=== PATIENT | male | born 1985 | race Caucasian/White ===

== ENCOUNTER 2022-02-01 03:49 | Emergency (ER) | payer OTHER ==
[2022-02-01] MEDS ORDERED: KETOROLAC 60 MG/2 ML VIAL IM STA (04:22)
--- NOTE | 2022-02-01 04:24 | ED Physician Documentation ---
PD HPI UPPER EXT INJURY - Stated complaint Stated Complaint: left shoulder - Chief complaint Chief Complaint: Ext Problem - History obtained from History obtained from: Patient - History of Present Illness Location: Left, Shoulder Type of injury: Other (pulled hard to open plastic packaging) Where injury occurred: Home Timing - onset: Enter time (1899), Last night Timing - duration: Hours Timing - details: Abrupt onset, Still present Improved by: Rest, Immobilization Worsened by: Moving, Palpating Associated symptoms: No: Weakness, Numbness, Tingling, Swelling, Discolored Contributing factors: Prior ortho surgery Similar symptoms before: Diagnosis (rotator cuff and labrum injury) Recently seen: Not recently seen - Additonal information Additional information: 36-year-old Yobani Oviedo has a prior history of injury to his left shoulder with a rotator cuff injury and labrum tear. He has been having increasing pain over the past year and today he was opening a hard plastic packaging. He pulled on it pretty hard and injured his left shoulder. He has been unable to sleep since 7:00 last night and he is coming to the emergency department for relief. He is unable to move his shoulder in any significant range of motion secondary to pain. Review of Systems Constitutional: denies: Fever Ears: denies: Ear pain Nose: denies: Rhinorrhea / runny nose, Congestion Throat: denies: Sore throat Cardiac: denies: Chest pain / pressure Respiratory: denies: Cough GI: denies: Vomiting, Constipation, Diarrhea : denies: Dysuria, Frequency Musculoskeletal: reports: Neck pain, Joint pain. denies: Back pain, Extremity swelling, Joint swelling Neurologic: denies: Generalized weakness, Focal weakness, Numbness PD PAST MEDICAL HISTORY - Present Medications Home Medications: Ambulatory Orders Medication Instructions Recorded Confirmed HYDROcod/ACETAM 5/325 [[place] 5/325] 1 - 2 tablet PO Q6H PRN #14 tablet 02/01/22 - Allergies Allergies/Adverse Reactions: Allergies Allergy/AdvReac Type Severity Reaction Status Date / Time No Known Drug Allergies Allergy Verified 02/01/22 04:16 PD ED PE NORMAL - Vitals Vital signs reviewed: Yes (hypertensive ) - General General: Alert and oriented X 3, No acute distress, Well developed/nourished - HEENT HEENT: Atraumatic, PERRL, EOMI - Neck Neck: Supple, no meningeal sign, No bony TTP - Respiratory Respiratory: No respiratory distress - Derm Derm: Normal color, Warm and dry, No rash - Extremities Extremities: No deformity, No edema, Other (point tenderness anterior and posterior deltoid on the left. Decreased ROM secondary to pain. Able to abduct passivley but not actively. ) - Neuro Neuro: Alert and oriented X 3, auto driver 2-12 intact, No motor deficit, No sensory deficit, Normal speech Eye Opening: Spontaneous Motor: Obeys Commands Verbal: Oriented GCS Score: 15 - Psych Psych: Normal mood, Normal affect Results - Vitals Vitals: Vital Signs - 24 hr 02/01/22 02/01/22 04:05 05:15 Temperature 36.1 C L Heart Rate 72 60 Respiratory 16 16 Rate Blood Pressure 169/105 H 162/102 H O2 Saturation 95 97 Oxygen O2 Source Room air - Rads (name of study) shoulder L Radiology: Prelim report reviewed (Impression: No acute findings.), EMP read indepedently, See rad report PD MEDICAL DECISION MAKING - ED course Complexity details: reviewed results, re-evaluated patient, considered differential, d/w patient ED course: 36-year-old male with a strain to the left shoulder has a lot of difficulty moving the shoulder around and he has had prior rotator cuff and labrum injury. He has had surgery for this. Today he is not able to hold the arm in abduction and this can be moved into abduction passively. Patient is placed into a sling and instructed to follow-up with orthopedics. He is given an injection of Toradol in the emergency department and we have provided a short course of pain medication. Departure - Departure Disposition: 01 Home, Self Care Clinical Impression: Strain of shoulder, left Qualifiers: Encounter type: initial encounter Qualified Code(s): S46.912A - Strain of unspecified muscle, fascia and tendon at shoulder and upper arm level, left arm, initial encounter Condition: Stable Instructions: ED Immobilizer Shoulder, ED Sprain Shoulder Follow-Up: NATAC[facility] Sommer [Provider Group] Brian Ralph MD [Provider Admit Priv/Credential] - Prescriptions: HYDROcod/ACETAM 5/325 [[place] 5/325] 1 - 2 tablet PO Q6H PRN #14 tablet PRN Reason: Pain Comments: Yobani, it looks like you strained your shoulder and it is difficult to tell exactly what is torn or disrupted. A follow-up with orthopedics is indicated and in the meantime use the sling and swath for support and make certain to remove your arm from the sling and swath several times per day to do range of motion. I have given you a number for an orthopedic doctor for follow-up. You will likely need MRI. I have provided a limited number of narcotic pain pills which have been E scribed to the [facility] in [place]. Discharge Date/Time: 02/01/22 05:19
[2022-02-01 05:25] VITALS: BP 162/102
--- NOTE | 2022-02-01 08:02 | XRAY Report ---
PROCEDURE: Shoulder 3 View LT INDICATIONS: injured, pain, decreased ROM, prior surg TECHNIQUE: 3 views of the shoulder were acquired. COMPARISON: None. FINDINGS: Bones: No fractures or dislocations. No suspicious bony lesions. Slight inferior displacement of hu meral head at the glenohumeral joint, probably related to joint effusion. Visualized ribs appear inta ct. Soft tissues: No suspicious soft tissue calcifications. IMPRESSION: 1. No acute osseous abnormalities. 2. Suspect glenohumeral joint effusion. 3. No significant discrepancy with the preliminary interpretation. Reviewed by: Mariposa Bailey MD on 02/01/2022 8:00 AM PST Approved by: Mariposa Bailey MD on 02/01/2022 8:00 AM PST Station ID: [id number]
== END 2022-02-01 05:19 | disposition home or self-care (01) ==
LOC: ED 03:49
DX: S46.912A Strain of unspecified muscle, fascia and tendon at shoulder and upper arm level, left arm, initial encounter (principal); X58.XXXA Exposure to other specified factors, initial encounter
CPT/HCPCS: 96372; 99283; 99284

== ENCOUNTER 2022-08-05 08:43 | Emergency (ER) | payer OTHER ==
[2022-08-05 09:00] VITALS: BP 164/103
--- NOTE | 2022-08-05 09:21 | ED Physician Documentation ---
History of Present Illness - Stated complaint Stated Complaint: RT KNEE PX - Chief complaint Chief Complaint: Ext Problem - History obtained from History obtained from: Patient - Additonal information Additional information: Patient is a 36-year-old with a history of gout presenting for evaluation of right knee pain at that feels similar to prior attacks of gout. Patient reports pain started on Friday. He reports eating lumpy on Friday and that fried food and pork have been triggers for him in the past. He has had improvement in the past with colchicine does not currently have a prescription. 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 Review of Systems Constitutional: denies: Fever Cardiac: denies: Chest pain / pressure Respiratory: denies: Dyspnea GI: denies: Abdominal Pain Musculoskeletal: reports: Extremity pain Neurologic: denies: Headache PD PAST MEDICAL HISTORY - Past Medical History Past Medical History: Yes Musculoskeletal: Gout - Past Surgical History Past Surgical History: Yes Ortho: Shoulder arthroplasty - Present Medications Home Medications: Ambulatory Orders Medication Instructions Recorded Confirmed Colchicine 0.6 mg PO BID PRN #14 tablet 08/05/22 - Allergies Allergies/Adverse Reactions: Allergies Allergy/AdvReac Type Severity Reaction Status Date / Time No Known Drug Allergies Allergy Verified 02/01/22 04:16 - Social History Does the pt smoke?: No Smoking Status: Never smoker Does the pt drink ETOH?: Yes Does the pt have substance abuse?: No - Immunizations Immunizations are current?: Yes - POLST Patient has POLST: No PD ED PE NORMAL - General General: Alert and oriented X 3, No acute distress, Well developed/nourished - HEENT HEENT: Atraumatic - Neck Neck: Supple, no meningeal sign - Cardiac Cardiac: Strong equal pulses - Respiratory Respiratory: No respiratory distress - Derm Derm: Warm and dry, No rash - Extremities Extremities: No deformity, No edema, Other (Tenderness to lateral right knee, no signs of joint swelling, overlying erythema, Mild pain on range of motion) - Neuro Neuro: Alert and oriented X 3, No motor deficit, No sensory deficit, Normal speech Results - Vitals Vitals: Vital Signs - 24 hr 08/05/22 08:50 Temperature 37 C Heart Rate 98 Respiratory 16 Rate Blood Pressure 164/103 H O2 Saturation 98 Oxygen O2 Source Room air PD Medical Decision Making - ED course ED course: Patient presenting for evaluation of atraumatic right knee pain. He has a history of gout with prior episodes in the knee. No trauma or signs of septic joint. He is ambulatory. Stable vital signs. No visible deformity noted on exam.Given history of gout in the joint suspect that this is likely a flareup especially given with known trigger for the patient.We will treat with colchicine and as patient states that this has helped him in the past. Discussed need for [facility] as well as strict return precautions for any worsening symptoms. Departure - Departure Disposition: 01 Home, Self Care Clinical Impression: Gout attack Condition: Stable Instructions: ED Arthritis Gout Prescriptions: Colchicine 0.6 mg PO BID PRN #14 tablet PRN Reason: Pain 5-7 Comments: I am sending a prescription for colchicine to the [facility] pharmacy in [place]. Please take as directed. I would recommend close follow-up with your primary care provider. Please avoid any Known triggers for your gout flares. If you develop any worsening symptoms such as fever, increased pain or any new concerns please return to the emergency department. Forms: Activity restrictions Discharge Date/Time: 08/05/22 09:34
[2022-08-05] MEDS: COLCHICINE 0.6 MG TABLET PO STA (09:28)
== END 2022-08-05 09:34 | disposition home or self-care (01) ==
LOC: ED 08:43
DX: M10.9 Gout, unspecified (principal)
CPT/HCPCS: 99282; 99283; A9270

== ENCOUNTER 2022-08-20 18:55 | Emergency (ER) | payer OTHER ==
[2022-08-20 19:04] VITALS: BP 145/88
--- NOTE | 2022-08-20 20:22 | XRAY Report ---
PROCEDURE: Knee 4 View RT INDICATIONS: R knee pain TECHNIQUE: 4 views of the right knee were acquired. COMPARISON: None. FINDINGS: Bones: No fractures or dislocations. There is mild osteophytosis in the patellofemoral compartment l aterally. No suspicious bony lesions. Soft tissues: There is a small knee joint effusion. No suspicious soft tissue calcifications or mass es. IMPRESSION: 1. No acute bony abnormality. 2. Small joint effusion. Reviewed by: Woody Diaz MD on 08/20/2022 8:21 PM PDT Approved by: Woody Diaz MD on 08/20/2022 8:21 PM PDT Station ID: [id number]
[2022-08-20] MEDS ORDERED: KETOROLAC 60 MG/2 ML VIAL IM STA (20:49)
[2022-08-20] MEDS ORDERED: predniSONE 20 MG TABLET PO STA (20:49)
--- NOTE | 2022-08-20 20:54 | ED Physician Documentation ---
History of Present Illness - Stated complaint Stated Complaint: RT KNEE PAIN - Chief complaint Chief Complaint: Ext Problem - History obtained from History obtained from: Patient - History of Present Illness Timing: How many weeks ago (2) Pain level max: 8 Pain level now: 8 - Additonal information Additional information: Patient is a 36-year-old male who presents to the emergency department with a right knee pain. He states that this feels similar to his prior episodes of gout. He was placed on colchicine 2 weeks ago but [place] have had no appointments. He states he is having continued pain and swelling to the right knee. Denies any trauma. Has not taken anything for the pain. No fevers. No chills. Worse with walking and movement, better with rest. Review of Systems Constitutional: denies: Fever, Chills GI: denies: Vomiting, Diarrhea Skin: denies: Rash Musculoskeletal: denies: Neck pain, Back pain Neurologic: denies: Headache PD PAST MEDICAL HISTORY - Past Medical History Past Medical History: Yes Musculoskeletal: Gout - Past Surgical History Past Surgical History: Yes Ortho: Shoulder arthroplasty - Present Medications Home Medications: Ambulatory Orders Medication Instructions Recorded Confirmed Colchicine 0.6 mg PO BID PRN #14 tablet 08/05/22 Indomethacin [Indocin] 25 - 50 mg PO Q8H PRN #30 cap 08/20/22 predniSONE [Deltasone] 10 mg PO [id number] #42 tab 08/20/22 - Allergies Allergies/Adverse Reactions: Allergies Allergy/AdvReac Type Severity Reaction Status Date / Time No Known Drug Allergies Allergy Verified 08/20/22 19:00 - Social History Does the pt smoke?: No Smoking Status: Never smoker Does the pt drink ETOH?: Yes Does the pt have substance abuse?: No - Immunizations Immunizations are current?: Yes - POLST Patient has POLST: No PD ED PE NORMAL - Vitals Vital signs reviewed: Yes - General General: Alert and oriented X 3, No acute distress - HEENT HEENT: Moist mucous membranes - Neck Neck: Supple, no meningeal sign - Cardiac Cardiac: RRR - Respiratory Respiratory: No respiratory distress, Clear bilaterally - Derm Derm: Warm and dry, No rash - Extremities Extremities: Other (Right knee - Mild warmth to the knee. No skin changes. Small joint effusion Neurovascularly intact. Limited range of motion secondary to pain. ACL, MCL, LCL and PCL are intact. Unable to tolerate meniscus laura ting.) - Neuro Neuro: Alert and oriented X 3 - Psych Psych: Normal mood, Normal affect Results - Vitals Vitals: Vital Signs - 24 hr 08/20/22 19:00 Temperature 36.5 C Heart Rate 97 Respiratory 18 Rate Blood Pressure 145/88 H O2 Saturation 97 Oxygen O2 Source Room air - Rads (name of study) Right knee x-ray Relevant Findings:: Final report received, See rad report (Small joint effusion) PD Medical Decision Making - ED course Complexity details: reviewed results, re-evaluated patient, considered differential, d/w patient ED course: 36-year-old male with ongoing right knee pain. We will treat as potential gout, given Toradol and will place on prednisone. We will place on indomethacin as well. Recommend that he follow-up with orthopedics as he may need further investigation for his small effusion, potential meniscus injury? Does not appear consistent with septic joint at this time. We will place the patient on crutches to decrease the weightbearing and to see if this helps the effusion as well. He is unable to tolerate meniscus testing here. No acute findings other than the small effusion on x-ray. Patient counseled regarding signs and symptoms for which I believe and urgent re-evaluation would be necessary. Patient with good understanding of and agreement to plan and is comfortable going home at this time This document was made in part using voice recognition software. While efforts are made to proofread this document, sound alike and grammatical errors may occur. Departure - Departure Disposition: 01 Home, Self Care Clinical Impression: Joint effusion Qualifiers: Effusion of joint location: knee Laterality: right Qualified Code(s): M25.461 - Effusion, right knee Condition: Good Instructions: ED Effusion Knee Follow-Up: [facility] [Provider Group] - Within 1 week Prescriptions: predniSONE [Deltasone] 10 mg PO [id number] #42 tab Indomethacin [Indocin] 25 - 50 mg PO Q8H PRN #30 cap PRN Reason: knee pain Comments: Please follow-up with orthopedics for further care. We will place you on a steroid taper, if this is gout, this should resolve quickly. It is also possible that the effusion could be secondary to a another source such as a meniscus injury. Your x-ray does not show any other acute abnormalities. Please follow-up with your doctor and orthopedics. Please return if you worsen Your prescriptions were sent to [facility] in [place]. Forms: Activity restrictions Discharge Date/Time: 08/20/22 21:24
== END 2022-08-20 21:24 | disposition home or self-care (01) ==
LOC: ED 18:55
DX: M25.461 Effusion, right knee (principal)
CPT/HCPCS: 73564; 96372; 99283; J7512

== ENCOUNTER 2022-09-25 12:45 | Outpatient (CLI) | payer OTHER ==
--- NOTE | 2022-09-26 10:46 | MRI Report ---
PROCEDURE: KNEE WO - RT INDICATIONS: RIGHT KNEE PAIN TECHNIQUE: Noncontrast sagittal PD fast spin echo and T2 fast spin echo with fat saturation, sagittal 3-D gradie nt sequence with fat saturation; coronal T1 spin echo and PD fast spin echo with fat saturation, and axial PD fast spin echo with fat saturation through the knee. COMPARISON: X-ray right knee, 08/20/2025. FINDINGS: Image quality: Excellent. Menisci: There is complex tear of the anterior root of the medial meniscus. There is horizontal tear of the anterior root of the lateral meniscus. Cruciate ligaments: The anterior and posterior cruciate ligaments appear intact. Medial structures: The medial collateral ligament appears intact. The semimembranosus tendon insert ions and meniscocapsular junction appear intact. Visualized portions of the pes anserinus tendons ap pear normal. No abnormal bursal fluid. Lateral structures: The lateral collateral ligament and the biceps femoris tendon appear intact. The re is partial tear of the popliteus tendon and associated muscle strain at the musculotendinous junct ion. There is a 0.8 x 1.5 x 2.2 cm oval-shaped structure in the popliteal musculotendinous junction p robably a small hematoma. Iliotibial band appears normal. Anterior structures: The quadriceps and patellar tendons appear intact. There is moderate patellar tendinitis. Patellar alignment is normal. No femoral trochlear dysplasia or ventral trochlear promin ence. No edema in the infrapatellar fat pad. Bones and cartilage: No bone marrow contusions or fractures. Mild tricompartmental cartilage fibrill ation with preserved cartilage thickness. Joint space: There is bzzxk-xx-thikagwr knee joint effusion. There is a moderate-sized complex popli teal cyst. Normal appearing synovial plicae are incidentally noted. IMPRESSION: 1. Tear of the anterior root of the medial meniscus. 2. Tear of the anterior root of the lateral meniscus. 3. Partial tear of the popliteus tendon with associated strain at the musculotendinous junction. Ther e is a 0.8 x 1.5 x 2.2 cm oval-shaped structure at the popliteus musculotendinous junction, probably a small hematoma. 4. Patellar tendinitis. 5. A moderate sized complex popliteal cyst. 6. A small-to moderate knee joint effusion. Reviewed by: Mariposa Bailey MD on 09/26/2022 10:45 AM PDT Approved by: Mariposa Bailey MD on 09/26/2022 10:45 AM PDT Station ID: [id number]
== END 2022-09-25 12:46 | disposition home or self-care (01) ==
LOC: DI 12:45
PROVIDERS: ATTEND Nurse Practitioner Family
DX: S83.241A Other tear of medial meniscus, current injury, right knee, initial encounter (principal); S83.281A Other tear of lateral meniscus, current injury, right knee, initial encounter; S86.821A Laceration of other muscle(s) and tendon(s) at lower leg level, right leg, initial encounter; M71.21 Synovial cyst of popliteal space [Baker], right knee; M25.461 Effusion, right knee

== ENCOUNTER 2022-10-04 13:58 | Outpatient (CLI) | payer OTHER ==
[2022-10-04] MEDS ORDERED: LIDOCAINE-MPF 1% 5 ML VIAL ONE (14:13)
[2022-10-04] MEDS ORDERED: TRIAMCINOLONE 40 MG/ML VIAL ONE (14:13)
[2022-10-04] MEDS ORDERED: BUPIVACAINE 0.5% PF 10 ML VIAL ONE (14:13)
--- NOTE | 2022-10-04 15:51 | Ultrasound Report ---
PROCEDURE: Injection Single Tendon INDICATIONS: PAIN IN LEFT SHOULDER TECHNIQUE: The indications, alternatives, benefits, risks, and complications of the procedure were explained to the patient. Written informed consent was obtained and placed in the chart. The patient was placed in an appropriate position on the fluoroscopy table, and a site was chosen for percutaneous access un shreya ultrasound guidance. Local anesthetic was administered using a 1% lidocaine solution. A hypoder susan or spinal needle was then used to access the symptomatic joint. Intra-articular location of the needle tip was confirmed by real time ultrasound imaging, followed by steroid administration. The ne edle was then withdrawn, and a bandage applied to the puncture site. FINDINGS: Joint injected: Left biceps tendon sheath. Medications injected: 5 mL of 40 mg/mL Kenalog and 0.5% Ropivacaine mixture. Complications: None. IMPRESSION: Successful ultrasound guided administration of steroid and anaesthetic solution into the left biceps tendon sheath. Reviewed by: Damián Antonio on 10/04/2022 3:49 PM PDT Approved by: Damián Antonio on 10/04/2022 3:49 PM PDT Station ID: [id number]
[2022-10-04] MEDS ORDERED: LIDOCAINE-MPF 1% 5 ML VIAL TD ONE (17:52)
[2022-10-04] MEDS ORDERED: BUPIVACAINE 0.5% PF 10 ML VIAL IM ONE (17:53)
[2022-10-04] MEDS ORDERED: TRIAMCINOLONE 40 MG/ML VIAL IM ONE (17:54)
== END 2022-10-04 13:59 | disposition home or self-care (01) ==
LOC: DI 13:58
PROVIDERS: ATTEND Orthopaedic Surgery
DX: M25.512 Pain in left shoulder (principal); G89.29 Other chronic pain
CPT/HCPCS: 20550

== ENCOUNTER 2023-02-17 18:32 | Emergency (ER) | payer OTHER ==
[2023-02-17] MEDS ORDERED: HYDROcod/ACETAM 5/325 MG TABLET PO STA (18:58)
--- NOTE | 2023-02-17 18:59 | ED Physician Documentation ---
PD HPI LOWER EXT INJURY - Stated complaint Stated Complaint: RT FOOT PX - Chief complaint Chief Complaint: Ext Problem - History obtained from History obtained from: Patient - Additional information Additional information: 37-year-old gentleman who is active duty in the [employer] and has a history of Planter fasciitis and gout presents with pain on the bottom of the right foot for the last week. There was no trauma. It makes it hard to walk. He is already taking anti-inflammatories. PD PAST MEDICAL HISTORY - Past Medical History Past Medical History: Yes Musculoskeletal: Gout - Past Surgical History Past Surgical History: Yes Ortho: Shoulder arthroplasty - Present Medications Home Medications: Ambulatory Orders Medication Instructions Recorded Confirmed HYDROcod/ACETAM 5/325 [[place] 5/325] 1 - 2 tab PO Q6H PRN #10 tablet 02/17/23 Meloxicam 15 mg PO DAILY PRN 02/17/23 02/17/23 - Allergies Allergies/Adverse Reactions: Allergies Allergy/AdvReac Type Severity Reaction Status Date / Time No Known Drug Allergies Allergy Verified 02/17/23 18:40 - Social History Does the pt smoke?: No Smoking Status: Never smoker Does the pt drink ETOH?: Yes Does the pt have substance abuse?: No - Immunizations Immunizations are current?: Yes - POLST Patient has POLST: No PD ED PE NORMAL - Vitals Vital signs reviewed: Yes - General General: Alert and oriented X 3, No acute distress - Back Back: No CVA TTP, No spinal TTP - Derm Derm: Normal color, Warm and dry - Extremities Extremities: Other (Tender to the plantar fascia but not the heel or the Achilles. No redness, warmth, swelling. No focal tenderness over the first MTP.) - Neuro Neuro: Alert and oriented X 3, Normal speech Results - Vitals Vitals: Vital Signs - 24 hr 02/17/23 02/17/23 18:36 19:27 Temperature 36.1 C L Heart Rate 81 82 Respiratory 15 16 Rate Blood Pressure 159/104 H 151/104 H O2 Saturation 97 96 Oxygen O2 Source Room air PD Medical Decision Making - ED course ED course: 37-year-old gentleman with clinical Planter fasciitis. No evidence of gout or infection. Discussed appropriate stretches and recommended podiatry follow-up. Departure - Departure Disposition: 01 Home, Self Care Clinical Impression: Plantar fasciitis of right foot Condition: Good Record reviewed to determine appropriate education?: Yes Instructions: ED Plantar Fasciitis Prescriptions: HYDROcod/ACETAM 5/325 [[place] 5/325] 1 - 2 tab PO Q6H PRN #10 tablet PRN Reason: Pain Comments: As discussed, your examination is consistent Planter fasciitis. You can continue the anti-inflammatory and I am adding a little stronger pain killer for when it is very bad. [place] consider podiatry referral. I sent your electronic prescription to [facility] in [place]. I am prescribing a short course of narcotic pain medication for you. These are potentially dangerous and addictive medications that should be used carefully. These medications may constipate you. Take an bjxz-vof-zdsitbc stool softener (docusate) twice daily with plenty of water while taking these medications. If you go 24 hours without a bowel movement, take azqp-hdk-smclqxr miralax, per package instructions. Do not drink or drive while taking these medications. If you received narcotic or sedating medications while in the emergency department, do not drive for 24 hours. Store this medication in a safe, secure place and out of reach of children. It is a violation of federal law to give or sell this medication to another person or to use in a manner other than prescribed. The ED will not refill narcotic prescriptions, including prescriptions lost or stolen. To dispose of unwanted medications: 1. [facility] provides a [facility] box for medication in pill form only (no liquids) 8:00 am to 4:30 p.m. Friday-Friday in the lobby of the [facility], [address] [place] [address]. Empty pills into ziplock bag before disposal. Call [phone] for information. 2.[employer] is a free service available to all [facility] residents. Go to [email or web address]/ Note that many narcotic pain relievers also contain Tylenol/acetaminophen. Please ensure that your total dose of acetaminophen from all sources does not exceed 3 g (3000 mg) per day. Forms: PCP List Discharge Date/Time: 02/17/23 19:28
[2023-02-17 19:33] VITALS: BP 151/104; O2SAT 96
== END 2023-02-17 19:28 | disposition home or self-care (01) ==
LOC: ED 18:32
DX: M72.2 Plantar fascial fibromatosis (principal)
CPT/HCPCS: 99282; A9270

== ENCOUNTER 2023-04-26 06:33 | Emergency (ER) | payer OTHER ==
[2023-04-26 06:53] VITALS: O2SAT 97
[2023-04-26] MEDS: TRIAMCINOLONE 40 MG/ML VIAL MC STA (07:40)
[2023-04-26] MEDS: ACETAMINOPHEN 500 MG TABLET PO STA (07:40)
[2023-04-26] MEDS: KETOROLAC 30 MG/ML VIAL IM STA (07:40)
--- NOTE | 2023-04-26 07:55 | ED Physician Documentation ---
PD HPI UPPER EXT INJURY - Stated complaint Stated Complaint: R SHOULDER PX - Chief complaint Chief Complaint: Trauma Ext - History obtained from History obtained from: Patient - History of Present Illness Location: Right, Shoulder Type of injury: Other (he was doing some repetitive work with arms and shoulder during the day and started to have pain in evening that has gotten worse overnight. Pain wth movement and lying on it.). No: Fall, Twist Where injury occurred: Home Timing - onset: Yesterday Timing - duration: Days (1) Timing - details: Gradual onset, Still present (severe the past several hours and greatly worse with any movement. Pain at lateral shoulder primarily.) Worsened by: Moving, Palpating Associated symptoms: No: Weakness (not in elbow nor hand, but feels weak in shoulder due to pain of movement.), Numbness Contributing factors: Prior ortho surgery (has had labral repair and some arthritis smoothing by scope few years ago on that shoulder. Has pain occasionally but not near to this degree.) Review of Systems Constitutional: reports: Chills (he felt chills last night but thinks it from the pain. Has not had congestion, cough, runny nose, skin redness, swelling of shoulder nor skin sores otherwise.). denies: Fever Nose: denies: Rhinorrhea / runny nose, Congestion Throat: denies: Sore throat Respiratory: denies: Cough Skin: denies: Rash, Lesions, Abrasion (s), Laceration (s) PD PAST MEDICAL HISTORY - Past Medical History Musculoskeletal: Gout (but has not had it in the shoulders previously. ), Other (prior shoulder surgeries. ) - Past Surgical History Past Surgical History: Yes Ortho: Shoulder arthroplasty - Present Medications Home Medications: Ambulatory Orders Medication Instructions Recorded Confirmed HYDROcod/ACETAM 5/325 [Butte 5/325] 1 ea PO Q6H PRN #18 tablet 04/26/23 Meloxicam [Mobic] 7.5 mg PO BID 10 Days #20 tablet 04/26/23 methocarbamoL [Robaxin] 500 mg PO Q6H PRN #20 tablet 04/26/23 - Allergies Allergies/Adverse Reactions: Allergies Allergy/AdvReac Type Severity Reaction Status Date / Time No Known Drug Allergies Allergy Verified 04/26/23 08:06 - Social History Does the pt smoke?: No Smoking Status: Never smoker Does the pt drink ETOH?: Yes Does the pt have substance abuse?: No - Immunizations Immunizations are current?: Yes - POLST Patient has POLST: No PD ED PE NORMAL - Vitals Vital signs reviewed: Yes - General General: Alert and oriented X 3, Well developed/nourished, Other (appears in considerable pain and guarding ROM of the shoulder with it held to his side. ) - Neck Neck: Supple, no meningeal sign, No bony TTP, No adenopathy - Cardiac Cardiac: RRR (mild tachycardic with good heart sounds and no murmur nor rub. ) - Respiratory Respiratory: No respiratory distress, Clear bilaterally - Abdomen Abdomen: Soft, Non tender - Derm Derm: Normal color, Warm and dry, No rash - Extremities Extremities: Other (right shoulder very tender laterally anterior and posterior to the AC joint but not as much directly at it. Consider bursal process underneath. All motions of the shoulder in rotational directions cause pain. ) - Neuro Neuro: Alert and oriented X 3, No motor deficit, No sensory deficit Results - Vitals Vitals: Oxygen O2 Source Room air - Rads (name of study) right shoulder Relevant Findings:: Prelim report reviewed, EMP independent interpretation of test (no acute process) PD Medical Decision Making - ED course Complexity details: reviewed results (shoulder xray without bone lesions, dislocation nor stress fractures. He states some chills last night and has mild tachy but likely from pain. No other symptoms nor findings to suggest infections, particularly none appearing at the shoulder. Cautioned to watch for rash, redness, swelling. ), considered differential (onset of pain after some repetitive work with it at home. Has become severe, worse with ROM. Tender laterally. Most likely bursitis, given the character of it. I did injection at the bursal area from anterior aspect with Kenalog and lido. Also given sling and NSAIDs. He drove self so no opioids here), d/w patient Departure - Departure Disposition: 01 Home, Self Care Clinical Impression: Acute bursitis Shoulder pain, acute Qualifiers: Laterality: right Qualified Code(s): M25.511 - Pain in right shoulder Condition: Stable Record reviewed to determine appropriate education?: Yes Follow-Up: [facility] [Provider Group] Prescriptions: Meloxicam [Mobic] 7.5 mg PO BID 10 Days #20 tablet HYDROcod/ACETAM 5/325 [Butte 5/325] 1 ea PO Q6H PRN #18 tablet PRN Reason: Pain methocarbamoL [Robaxin] 500 mg PO Q6H PRN #20 tablet PRN Reason: Spasms Comments: The location and character of your pain sounds likely to be an inflammation of the cushion underneath the muscles at the shoulder (bursitis). It can be some of the muscles for the shoulder themselves. The common treatment would be decreased use and motion of the shoulder with the sling in combination with not wanting to get too stiff so passive range of motion of the shoulder every 2-3 hours through the day. I am sure you are familiar with this concept given your prior shoulder surgeries. I would suggest some anti-inflammatories regularly. I wrote a prescription for 1 months twice daily. They can be muscle spasms around the shoulder as well so muscle relaxant 2 or 3 times daily as well. Progress range of motion as tolerated but no heavy lifting, push pull, overhead reaching for least 4 to 5 days. Add Tylenol every 4-6 hours if needed for pain or hydrocodone/acetaminophen if needed for worse pain. I sent your prescriptions to [facility] in [place]. I am prescribing a short course of narcotic pain medication for you. These are potentially dangerous and addictive medications that should be used carefully. These medications may constipate you. Take an [id number]-yjoxiwk stool softener such as docusate twice daily with plenty of water while taking these medications. If you go 24 hours without a bowel movement, take [id number] MiraLAX, per package instructions. Do not drink or drive while taking these medications. If you received narcotic or sedating medications while in the emergency department do not drive for 24 hours. Store this medication in a safe, secure place and out of reach of children. It is a violation of federal law to give or sell this medication to another person or to use in a manner other than prescribed. The ED will not refill narcotic prescriptions, including prescriptions lost or stolen. You can dispose of unwanted medications at the [facility]'s office or at several pharmacies such as [facility]. Follow-up with your primary care or Ortho if not well improved over the next several days and resolved by 4 to 5 days. Forms: PCP List, Activity restrictions Discharge Date/Time: 04/26/23 08:30
--- NOTE | 2023-04-26 08:17 | XRAY Report ---
PROCEDURE: Shoulder 2+V RT INDICATIONS: onset pain yesterday, worsening TECHNIQUE: 3 views of the shoulder were acquired. COMPARISON: None. FINDINGS: Bones: Mild degenerative changes of the acromioclavicular joint. No displaced fracture or dislocatio n. Soft tissues: No suspicious calcifications. IMPRESSION: No acute radiographic abnormality. Mild acromioclavicular degenerative changes. If there is high conc javier for further derangement, consider MRI evaluation. Reviewed by: Boni Monsalve MD on 04/26/2023 8:15 AM PST Approved by: Boni Monsalve MD on 04/26/2023 8:15 AM PST Station ID: [id number]
[2023-04-26 08:36] VITALS: BP 145/97
== END 2023-04-26 08:30 | disposition home or self-care (01) ==
LOC: ED 06:33
DX: M71.9 Bursopathy, unspecified (principal); M25.511 Pain in right shoulder
CPT/HCPCS: 20610; 73030; 96372; 99283; 99284; A9270

== ENCOUNTER 2023-12-14 14:14 | Emergency (ER) | payer OTHER ==
--- NOTE | 2023-12-14 15:11 | ED Physician Documentation ---
PD HPI LOWER EXT INJURY - Stated complaint Stated Complaint: LT ANKLE PX,SWELLING - Chief complaint Chief Complaint: Ext Problem - History obtained from History obtained from: Patient - Additional information Additional information: He has a history of gout with attacks about once a year including in the ankle. Atraumatic left ankle pain and swelling starting 2 days ago with warmth. No fevers. There was no injury. PD PAST MEDICAL HISTORY - Past Medical History Past Medical History: Yes Musculoskeletal: Gout, Other - Past Surgical History Past Surgical History: Yes Ortho: Shoulder arthroplasty - Present Medications Home Medications: Ambulatory Orders Medication Instructions Recorded Confirmed Colchicine 0.6 mg PO BID #3 tablet 12/14/23 Indomethacin [Indocin] 25 mg PO BIDWM #10 cap 12/14/23 - Allergies Allergies/Adverse Reactions: Allergies Allergy/AdvReac Type Severity Reaction Status Date / Time No Known Drug Allergies Allergy Verified 12/14/23 14:34 - Social History Does the pt smoke?: No Smoking Status: Never smoker Does the pt drink ETOH?: Yes Does the pt have substance abuse?: No - Immunizations Immunizations are current?: Yes - POLST Patient has POLST: No PD ED PE NORMAL - Vitals Vital signs reviewed: Yes - General General: Alert and oriented X 3, No acute distress - Extremities Extremities: Other (The left ankle is warm and swollen, tender with limited range of motion. No redness or cellulitis though.) - Neuro Neuro: Alert and oriented X 3 Results - Vitals Vitals: Vital Signs - 24 hr 12/14/23 12/14/23 14:20 15:52 Temperature 36 C L 36.5 C Heart Rate 92 88 Respiratory 16 16 Rate Blood Pressure 139/97 H 130/88 H O2 Saturation 96 98 Oxygen O2 Source Room air - Rads (name of study) Left ankle x-ray is normal Relevant Findings:: Final report received, EMP independent interpretation of test PD Medical Decision Making - ED course ED course: He presents with atraumatic left ankle swelling and warmth but no redness. He has had gout that has presented similarly in the past and that is likely it. He does not appear systemically ill and he is not febrile. Departure - Departure Disposition: 01 Home, Self Care Clinical Impression: Gout attack Qualifiers: Gout site: ankle Gout etiology: idiopathic Laterality: left Qualified Code(s): M10.072 - Idiopathic gout, left ankle and foot Condition: Good Record reviewed to determine appropriate education?: Yes Instructions: ED Arthritis Gout, ED Diet Gout Prescriptions: Colchicine 0.6 mg PO BID #3 tablet Indomethacin [Indocin] 25 mg PO BIDWM #10 cap Comments: The x-ray looks okay, so given your history of gout this is likely a gout flare. I sent medications to the [facility] in [place], return if you develop a fever. Follow-up with your flight physician. Forms: PCP List, Activity restrictions Discharge Date/Time: 12/14/23 15:52
[2023-12-14] MEDS: COLCHICINE 0.6 MG TABLET PO STA (15:34)
[2023-12-14] MEDS: INDOMETHACIN 25 MG CAPSULE PO STA ×2 (15:35)
--- NOTE | 2023-12-14 15:36 | XRAY Report ---
PROCEDURE: Ankle 3+V LT INDICATIONS: ankle pain, no inj TECHNIQUE: 3 views of the ankle were acquired. COMPARISON: None. FINDINGS: Bones: No fractures or dislocations. Ankle mortise is normally aligned. No suspicious bony lesions . Soft tissues: Small tibiotalar joint effusion. Achilles tendon appears normal. IMPRESSION: No acute bony abnormality. If there remains a high clinical concern for fracture, including inability to bear weight, consider cross-sectional imaging to exclude an occult fracture. Reviewed by: Fredrick Alexander MD on 12/14/2023 2:35 PM AKMARANDA Approved by: Fredrick Alexander MD on 12/14/2023 2:35 PM AKMARANDA Station ID: [id number]
[2023-12-14 15:53] VITALS: BP 130/88; O2SAT 98
== END 2023-12-14 15:52 | disposition home or self-care (01) ==
LOC: ED 14:14
DX: M10.072 Idiopathic gout, left ankle and foot (principal)
CPT/HCPCS: 73610; 99283; 99284; A9270